=== PATIENT | male | born 1955 ===

== ENCOUNTER 2019-11-01 19:26 | Emergency (ER) | payer MEDICAID ==
[~2019-11-01] VITALS: Ht 182.9 cm; Wt 103.0 kg
[2019-11-01] MEDS ORDERED: LIDOCAINE HCL/PF 1% 10 MG/ML 5ML VIAL IJ ONE (22:45)
[2019-11-01] MEDS ORDERED: BACITRACIN ZINC OINT UDPKT TOP ONE (22:45)
[2019-11-01] MEDS ORDERED: TETANUS, DIPHTHERIA, PERTUSSIS VAC/PF 0.5ML (>7YR OLD) IM ONE (22:45)
[2019-11-01] MEDS ORDERED: IBUPROFEN 600MG TABLET PO ONE (22:45)
[2019-11-01 22:59] VITALS: BP 170/100
== END 2019-11-01 23:53 | disposition home or self-care (01) ==
LOC: ER 19:29
DX: S61.215A Laceration without foreign body of left ring finger without damage to nail, initial encounter (principal); I10 Essential (primary) hypertension; W45.8XXA Other foreign body or object entering through skin, initial encounter; Y93.89 Activity, other specified; Y92.89 Other specified places as the place of occurrence of the external cause; Y99.8 Other external cause status
CPT/HCPCS: 12001; 90471; 90715; 99283; J3490